=== PATIENT | male | born 2000 | race Caucasian/White ===

== ENCOUNTER 2020-08-27 20:23 | Emergency (ER) | payer OTHER ==
[2020-08-28] MEDS ORDERED: PERCOCET 5-3251 EACH PO (00:17)
[2020-08-28] MEDS ORDERED: AMOXICILLIN500 MG PO (00:17)
[2020-08-28] MEDS ORDERED: IBUPROFEN800 MG PO (00:17)
== END 2020-08-28 00:30 | disposition home or self-care (01) ==
LOC: FER 20:23
DX: K01.1 Impacted teeth (principal); F17.210 Nicotine dependence, cigarettes, uncomplicated; Z88.8 Allergy status to other drugs, medicaments and biological substances
CPT/HCPCS: 99283; J1885; Q0163